=== PATIENT | male | born 1945 | race Caucasian/White ===

== ENCOUNTER 2017-07-20 12:50 | Emergency (ER) | payer MEDICARE, OTHER ==
[~2017-07-20] VITALS: Ht 167.6 cm; Wt 74.8 kg
[~2017-07-20 12:50] MED LIST: CALCIUM CITRAT250 MG PO; CO Q-10150 MG PO; LANSOPRAZOLE30 MG PO; LIPITOR40 MG; LISINOPRIL5 MG PO; LOPRESSOR 12.12.5 MG PO; LORTAB; MAGOX 400400 MG; MINIPRIN81 MG PO; MOBIC7.5 MG PO; MULTIVITAMINS PO; NORCO 5-325 TA1 EACH; OMEGA-31000 M1 PO; OXYBUTYNIN 5 MG5 M2 PO; OXYCONTIN20 M1 PO; PLAVIX 75 MG TA75 M1; PRILOSEC 20 MG20 MG PO; PROBIOTIC1 EACH PO; SIMVASTATIN40 MG PO; VERAPAMIL ER120 MG PO; VITAMIN B-12500 MCG PO
[2017-07-20 13:04] VITALS: BP 140/72
== END 2017-07-20 14:44 | disposition home or self-care (01) ==
LOC: M.ERS 12:50
DX: Z53.21 Procedure and treatment not carried out due to patient leaving prior to being seen by health care provider (principal)

== ENCOUNTER 2017-09-26 20:32 | Emergency (ER) | payer MEDICARE, OTHER ==
[~2017-09-26] VITALS: Ht 167.6 cm; Wt 73.0 kg
[2017-09-26] MEDS ORDERED: KEFLEX500 M1 (20:51)
[2017-09-26 20:55] LABS: ABSOLUTE EOSINOPHILS 0.3 thou/uL (0.0-0.7); ABSOLUTE LYMPHOCYTES 1.9 thou/uL (0.8-5.3); ABSOLUTE MONOCYTES 0.8 thou/uL (0.0-1.2); ABSOLUTE NEUTROPHILS 4.1 thou/uL (1.6-8.1); BASOPHILS 0.5 %; EOSINOPHILS 3.8 %; HEMATOCRIT 42.6 % (42.0-52.0); HEMOGLOBIN 14.6 gm/dL (14.0-18.0); LYMPHOCYTES 26.6 %; MCH 31.5 pg (26.0-34.0); MCHC 34.2 g/dL (28.0-37.0); MCV 92.2 fL (80.0-100.0); MONOCYTES 11.8 %; NUCLEATED RBCS 0 /100WBC; PLATELET COUNT* 202 thou/uL (150-400); POLYS 57.3 %; RBC 4.63 mil/uL (4.50-6.00); RDW-CV 13.6 % (10.5-14.5); WBC 7.1 thou/uL (4.0-11.0)
[2017-09-26 21:01] LABS: ANION GAP 5 mmol/L (7-16); BUN 16 mg/dL (7-18); CALCIUM 8.7 mg/dL (8.5-10.1); CHLORIDE 105 mmol/L (98-107); CO2 31 mmol/L (21-32); CREATININE 0.9 mg/dL (0.6-1.3); GLUCOSE 102 mg/dL (70-99); POTASSIUM 3.7 mmol/L (3.5-5.1); SODIUM 141 mmol/L (136-145)
[2017-09-26 21:03] LABS: INR 1.2; PROTIME 11.6 Seconds (9.20-11.50)
[2017-09-26 21:12] LABS: ALBUMIN 3.5 g/dL (3.4-5.0); ALKALINE PHOSPHATASE 96 U/L (46-116); NT-PRO BRAIN NAT PEPTIDE 84 pg/mL (<300); SGOT 24 U/L (15-37); SGPT 24 U/L (30-65); TOTAL BILIRUBIN 1.9 mg/dL (<0.1-1.0); TOTAL PROTEIN 6.7 g/dL (6.4-8.2); TROPONIN-I LEVEL <0.06 ng/mL (<0.06)
[2017-09-26 23:19] VITALS: BP 136/49
--- NOTE | 2017-09-27 13:00 | EKG ---
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 : 1945 Requested By: Loly Sigala Order Number: [id number] MD: Jame Emerson Measurements Intervals [place] Rate: 52 P: -4 [place]: 239 QRS: -55 QRSD: 149 T: 100 QT: 449 QTc: 418 Interpretive Statements Atrial-sensed ventricular-paced rhythm No further analysis attempted due to paced rhythm Compared to ECG 12/14/2016 12:24:38 Sinus rhythm no longer present Left bundle-branch block no longer present Electronically Signed On 09-27-2017 13:00:29 CDT by Jame Emerson [email or web address] <ELECTRONICALLY SIGNED> By: Jame Emerson MD, FAC 09/27/17 1300 35 35 Jame Emerson MD, [facility] /EPI
== END 2017-09-26 23:18 | disposition short-term general hospital (02) ==
LOC: M.ERS 20:32
PROVIDERS: Emergency Medicine
DX: R00.1 Bradycardia, unspecified (principal); G47.30 Sleep apnea, unspecified; G43.909 Migraine, unspecified, not intractable, without status migrainosus; Z88.8 Allergy status to other drugs, medicaments and biological substances; Z90.49 Acquired absence of other specified parts of digestive tract; Z86.73 Personal history of transient ischemic attack (TIA), and cerebral infarction without residual deficits; Z88.5 Allergy status to narcotic agent; Z88.2 Allergy status to sulfonamides

== ENCOUNTER 2021-08-06 21:21 | Observation (INO) | payer MEDICARE, OTHER ==
[~2021-08-06] VITALS: Ht 167.6 cm; Wt 77.1 kg
[~2021-08-06 21:21] MED LIST changes: +KEFLEX250 MG PO; +MULTI VITAMIN1 EACH PO; -MULTIVITAMINS PO; +PROBIOTIC1 EAC7 PO; -PROBIOTIC1 EACH PO
[2021-08-06 21:22] VITALS: BP 133/64
[2021-08-06 22:13] LABS: ABSOLUTE EOSINOPHILS 0.2 thou/uL (0.0-0.7); ABSOLUTE LYMPHOCYTES 0.6 thou/uL (0.8-5.3); ABSOLUTE MONOCYTES 0.4 thou/uL (0.0-1.2); ABSOLUTE NEUTROPHILS 1.5 thou/uL (1.6-8.1); BASOPHILS 0.5 %; EOSINOPHILS 6.6 %; HEMATOCRIT 34.2 % (42.0-52.0); HEMOGLOBIN 11.9 gm/dL (14.0-18.0); LYMPHOCYTES 23.5 %; MCH 31.8 pg (26.0-34.0); MCHC 34.9 g/dL (28.0-37.0); MCV 91.2 fL (80.0-100.0); MONOCYTES 14.9 %; MPV 7.2 fl. (7.2-11.1); NUCLEATED RBCS 0 /100WBC; PLATELET COUNT* 131 thou/uL (150-400); POLYS 54.5 %; RBC 3.75 mil/uL (4.50-6.00); RDW-CV 13.4 % (10.5-14.5); WBC 2.8 thou/uL (4.0-11.0)
[2021-08-06 22:21] LABS: CREATININE 0.9 mg/dL (0.6-1.3); POTASSIUM 3.4 mmol/L (3.5-5.1)
[2021-08-06 22:32] LABS: ALBUMIN 3.2 g/dL (3.4-5.0); TOTAL BILIRUBIN 1.1 mg/dL (<0.1-1.0)
[2021-08-07 02:15] VITALS: BP 128/67
[2021-08-07] MEDS ORDERED: CARAFATE1 GM PO (02:26)
[2021-08-07] MEDS ORDERED: NEURONTIN 400M400 M2 PO (02:28)
[2021-08-07] MEDS ORDERED: ELIQUIS5 MG PO (02:28)
[2021-08-07] MEDS ORDERED: SPIRONOLACTONE25 MG PO (02:29)
[2021-08-07 04:17] VITALS: BP 140/66
[2021-08-07 08:11] VITALS: BP 129/69
--- NOTE | 2021-08-07 10:04 | EKG ---
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: : 1945 Requested By: Loly Sigala Order Number: [id number] MD: Garret Macedo Measurements Intervals [place] Rate: 65 P: -4 [place]: 224 QRS: 245 QRSD: 166 T: 64 QT: 462 QTc: 481 Interpretive Statements Atrial and ventricular-paced complexes No further analysis attempted due to paced rhythm Compared to ECG 09/26/2017 20:36:04 ventricular failure to capture no longer noted Electronically Signed On 08-07-2021 10:03:48 LOW VOLTAGE TECHNICIAN by Garret Macedo [email or web address] <ELECTRONICALLY SIGNED> By: Garret Macedo MD, FACC 08/07/21 1003 28 28 Garret Macedo MD, FAC /EPI
--- NOTE | 2021-08-07 10:32 | NUR ---
CM COMPLETED AN ASSESSMENT WITH THE PATIENT. PT LIVES AT HOME W/. PRESENT AT BESIDE. PT IS ACTIVE AND INDEPENDENT W/CARES. PT HAS CPAP AT HOME. PT HAS NO HX WITH HH OR SNF. CM TO CONT TO FOLLOW.
[2021-08-07 11:30] VITALS: BP 145/55
--- NOTE | 2021-08-07 12:47 | 2DMMODE ---
[place] [address] 2 D/M-MODE ECHOCARDIOGRAM Name: SHAMA FABIAN Hilaria Room: [address] Yevgeniy Alexander#: [id number] Admission: 08/07/21 Attend Phys: Joi Onofre Discharge: Date of : 45 Date of Service: 08/07/21 1247 Report #: [id number] THIS REPORT FOR: cc: Floyd Walls,Floyd Marie,Garret Tinoco MD [facility] ~ APPROVED REPORT Study performed: 08/07/2021 09:54:11 EXAM: Comprehensive 2D, Doppler, and color-flow Echocardiogram Patient Location: In-Patient Room #: [facility] Status: routine BSA: 1.86 HR: 69 bpm BP: 140/66 mmHg Rhythm: NSR Other Information Study Quality: Good Indications Chest Pain 2D Dimensions IVSd: 10.90 (7-11mm) LVOT Diam: 22.41 (18-24mm) LVDd: 46.66 mm PWd: 10.39 (7-11mm) Ascending Ao: 45.95 (22-36mm) LVDs: 23.21 (25-40mm) Aortic Root: 38.73 mm Aortic Valve AoV Peak Bryn.: 2.16 m/s AO Peak Gr.: 18.72 mmHg LVOT Max P.32 mmHg AO Mean Gr.: 10.27 mmHg LVOT Mean P.25 mmHg LVOT Max V: 1.04 m/s AO V2 VTI: 41.36 cm LVOT Mean V: 0.70 m/s JOSE (VTI): 1.95 cm2 LVOT V1 VTI: 20.42 cm Mitral Valve E/A Ratio: 0.71 MV Decel. Time: 282.74 ms MV E Max Bryn.: 0.66 m/[place] [address] 2 D/M-MODE ECHOCARDIOGRAM Name: SHAMA FABIAN [address]#: [id number] Admission: 08/07/21 Attend Phys: Joi Onofre Discharge: Date of : 45 Date of Service: 08/07/21 1247 Report #: [id number] MV PHT: 81.99 ms MVA (PHT): 2.68 cm2 TDI E/Lateral E': 6.60 Lateral E' Bryn.: 0.10 m/s Pulmonary Valve PV Peak Bryn.: 1.29 m/s PV Peak Gr.: 6.62 mmHg Tricuspid Valve RAP Estimate: 5.00 mmHg TR Peak Gr.: 31.50 mmHg RVSP: 36.00 mmHg PA Pressure: 36.00 mmHg Left Ventricle The left ventricle is normal size. There is normal LV segmental wall motion. There is normal left ventricular wall thickness. Left ventricular systolic function is normal. The left ventricular ejection fraction is within the normal range. LVEF is 55-60%. Grade I - abnormal relaxation pattern. Right Ventricle The right ventricle is normal size. The right ventricular systolic function is normal. Pacemaker lead is present in the right ventricle. Atria The left atrium size is normal. The right atrium size is normal. Aortic Valve Aortic valve is calcified. Trace aortic regurgitation. mild aortic stenosis. Mitral Valve The mitral valve is normal in structure. Trace mitral regurgitation. No evidence of mitral valve stenosis. Tricuspid Valve The tricuspid valve is normal in structure. Trace tricuspid regurgitation. estimated pa pressure 40 mm Hg. Pulmonic Valve The pulmonary valve is normal in structure. There is no pulmon[place] [address] 2 D/M-MODE ECHOCARDIOGRAM Name: RUISHAMA Hilaria Room: [address]#: [id number] Admission: 08/07/21 Attend Phys: Joi Onofre Discharge: Date of : 45 Date of Service: 08/07/21 1247 Report #: [id number] Great Vessels The aortic root is normal in size. The ascending aorta is mildly dilated. IVC is not well visualized. Pericardium There is no pericardial effusion. <Conclusion> LVEF is 55-60%. mild aortic stenosis. Trace tricuspid regurgitation. estimated pa pressure 40 mm Hg. The ascending aorta is mildly dilated. <ELECTRONICALLY SIGNED> By: Garret Macedo MD, FACC 08/07/21 1247 124 124 Garret Macedo MD, FACC /INF
[2021-08-07 16:00] VITALS: BP 117/60
[2021-08-07 19:45] VITALS: BP 117/60
--- NOTE | 2021-08-08 12:53 | EKG ---
[place] [address] ELECTROCARDIOGRAM REPORT Name: ESTIVENLINDASHAMA L Room: [address]#: [id number] Admission: 08/07/21 Attend Phys: Joi Onofre Discharge: 08/07/21 Date of : 45 Date of Service: 08/06/212235 Report #: [id number] THIS REPORT FOR: //name// [facility] ED Test Date: 2021-08-06 Test Time: 22:36:46 Pat Name: SHAMA FABIAN Department: Room: [address] Gender: M Color Maker: : 1945 Requested By: Joi Onofre Order Number: [id number] MD: Garret Macedo Measurements Intervals [place] Rate: 62 P: 47 [place]: 230 QRS: 266 QRSD: 161 T: 73 QT: 473 QTc: 481 Interpretive Statements Atrial-sensed ventricular-paced rhythm No further analysis attempted due to paced rhythm Compared to ECG 08/06/2021 21:29:43 atrial paced beats no longer noted Electronically Signed On 08-08-2021 12:53:36 LIVESTOCK BROKER by Garret Macedo [email or web address] <ELECTRONICALLY SIGNED> By: Garret Macedo MD, FACC 08/08/21 1253 35 35 Garret Macedo MD, FAC /EPI
--- NOTE | 2021-08-08 13:06 | CON ---
[address] [address] CONSULTATION Name: SHAMA FABIAN Room: [address] Yevgeniy Alexander#: [id number] Admission: 08/07/21 Attend Phys: Niels Wray Discharge: 08/07/21 Date of : 45 Report #: [id number] THIS REPORT FOR: cc: Floyd Walls,Garret Booth MD [facility] ~ cc: Floyd Walls DO DATE OF CONSULTATION: 08/07/2021 CARDIOLOGY CONSULTATION HISTORY OF PRESENT ILLNESS: The patient is a 76-year-old white male who I was asked to see in the hospital today after he complained of chest pain. The patient has an extensive and complicated past medical history. He apparently had a heart catheterization years ago at [place] and was found to have no significant coronary artery disease. He notes that in 2019, he was at [facility] for back surgery. Apparently following surgery, he had a heart rate in the 20s. He then had a pacemaker inserted at [facility]. He notes he was discharged, but 8 hours later, he complained of shortness of breath and was taken back to [facility] and he was told that the lead had gone through his heart. He apparently did not require pericardiocentesis. He did require removal of the pacemaker and placement of another pacemaker. He is currently followed by Dr. Roy, a escort service attendant at [facility] on the [place] for his pacemaker. He has had a stress test in the past. He is not very active at this time. He notes about a month ago, he was admitted to [facility] in [place] with chest pain that went into his back. He apparently was found to have a pulmonary embolus. He had venous duplex scan of his legs and there was no evidence of DVT. He denied any recent long car ride, plane ride or surgery. He was on heparin and transitioned to Eliquis. He recently started radiation therapy for prostate cancer. He was doing well until yesterday, he was at home watching television, he felt pain in his chest, went into his back and his left shoulder, felt somewhat short of breath, diaphoretic. Paramedics were called. He was brought here to [place] and admitted. The pain lasted about an hour and then resolved. He denies any leg pain or edema. He has had no fever, cough or bleeding. He denied the pain being related to food. It did not radiate down his arms. He does note occasional dyspnea on exertion, but no edema. Notes occasional skipped heartbeat, but no syncope. 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 He has a history of hypertension, hyperlipidemia. CURRENT MEDICATIONS: Include Eliquis, Lipitor, Neurontin, lansoprazole, lisinopril, oxycodone, spironolactone, [place] [address] CONSULTATION Name: SHAMA FABIAN Room: [address] Yevgeniy Alexander#: [id number] Admission: 08/07/21 Attend Phys: Niels Wray Discharge: 08/07/21 Date of : 45 Report #: [id number] ALLERGIES: HE HAS A PREVIOUS INTOLERANCE TO ZOFRAN. FAMILY HISTORY: Negative for heart disease. SOCIAL HISTORY: He is . He and his live in [place]. He quit smoking 40 years ago. No alcohol abuse. REVIEW OF SYSTEMS: No history of stroke. He does have sleep apnea, uses CPAP. He wears glasses. No asthma. No liver disease. No kidney disease. No psychiatric illness. No chronic skin condition. PHYSICAL EXAMINATION: GENERAL: Reveals a middle-aged male, who appeared in no distress. VITAL SIGNS: He had a blood pressure of 130/60, pulse 70, he is afebrile. HEENT: He was anicteric. Conjunctivae pink. Mucous membranes moist. NECK: Neck veins do not appear distended. No carotid bruits. Neck is supple. CHEST: Clear to auscultation. CARDIAC: Regular rate and rhythm. No murmur. ABDOMEN: Soft. EXTREMITIES: Had no pitting edema. Posterior tibial pulse 2+ bilaterally. SKIN: Cool and dry. NEUROLOGIC: Nonfocal. IMAGING: His ECG on admission showed P-wave sensing and ventricular capture. His workup in the Emergency Room last night, he had a portable chest x-ray that showed normal heart size, clear lung meeks, aortic tortuosity. LABORATORY DATA: Potassium 3.4, creatinine 0.9. His liver function studies were normal. High-sensitivity troponin was only 21. BNP 54. His white blood cell count 2.8, hematocrit 34.2. His COVID antigen stat test was negative. IMPRESSION AND RECOMMENDATIONS: 1. Chest pain. No evidence of acute myocardial infarction. Suspect noncardiac. Possibly related to recent pulmonary embolus. I would recommend an echocardiogram. I would not recommend stress testing at this time. 2. History of an aneurysm of the ascending aorta. The patient is followed by Cardiology at [facility]. 3. Previous dual chamber pacemaker insertion. Pacemaker appears to be functioning normally. 4. Sleep apnea. The patient is on BiPAP. 5. Recent pulmonary embolus. The patient is on Eliquis. No recent bleeding. 6. History of prostate cancer. Currently, receiving radiation therapy. 7. [place] [address] CONSULTATION Name: SHAMA FABIAN Room: [address] Yevgeniy Alexander#: [id number] Admission: 08/07/21 Attend Phys: Niels Wray Discharge: 08/07/21 Date of : 45 Report #: [id number] 8. Hypertension. The patient is on lisinopril. 9. Hyperlipidemia. The patient is on a statin drug. 10. History of cardiomyopathy. The patient is on lisinopril and Aldactone. The patient apparently is not on a beta-alexus because of recent bradycardia. <ELECTRONICALLY SIGNED> By: Garret Macedo MD, FACC 08/08/21 1306 0754 [id number] Macedo MD, FACC /nt
== END 2021-08-07 19:35 | disposition home or self-care (01) ==
LOC: M.ERS 21:21 → M.TBA-ER 08-07 00:05 → M.2W 08-07 00:05 → M.TBA-ER 08-07 00:05 → M.2W 08-07 02:20
PROVIDERS: Emergency Medicine; ADMIT Internal Medicine; ATTEND Internal Medicine
DX: R07.89 Other chest pain (principal); Z20.822 Contact with and (suspected) exposure to COVID-19; I26.99 Other pulmonary embolism without acute cor pulmonale; D69.6 Thrombocytopenia, unspecified; C61 Malignant neoplasm of prostate; G89.29 Other chronic pain; I71.9 Aortic aneurysm of unspecified site, without rupture; Z95.818 Presence of other cardiac implants and grafts; Z79.899 Other long term (current) drug therapy